=== PATIENT | male | born 1960 | race African-American/Black ===

== ENCOUNTER 2020-07-20 05:53 | Emergency (ER) | payer MEDICAID ==
[~2020-07-20] VITALS: Ht 182.9 cm; Wt 91.0 kg
[2020-07-20] MEDS ORDERED: SODIUM CHLORIDE 0.9% 1,000 ML IV ONE (06:45)
[2020-07-20] MEDS ORDERED: METHYLPREDNISOLONE SOD SUCC 125 MG/2 ML VIAL IV ONE (06:45)
[2020-07-20 07:30] VITALS: BP 138/89
== END 2020-07-20 08:20 | disposition home or self-care (01) ==
LOC: ER 05:53
DX: T78.40XA Allergy, unspecified, initial encounter (principal); X58.XXXA Exposure to other specified factors, initial encounter; I10 Essential (primary) hypertension
CPT/HCPCS: 93005; 96361; 96374; 99283; J2930; J7030